=== PATIENT | male | born 1980 | race Caucasian/White ===

== ENCOUNTER 2017-02-26 14:21 | Emergency (ER) | payer OTHER | END 2017-02-26 17:18 | disposition home or self-care (01) | LOC: FER 14:21 | DX: S61.412A Laceration without foreign body of left hand, initial encounter (principal); W29.3XXA Contact with powered garden and outdoor hand tools and machinery, initial encounter; Y92.69 Other specified industrial and construction area as the place of occurrence of the external cause; Y99.0 Civilian activity done for income or pay | CPT/HCPCS: 73130; J2270 ==